=== PATIENT | male | born 1970 | race Caucasian/White ===

== ENCOUNTER 2016-09-22 17:20 | Emergency (ER) | payer OTHER ==
[~2016-09-22] VITALS: Ht 175.3 cm; Wt 72.7 kg
[~2016-09-22 17:20] MED LIST: HYDR1TAB90 PO; PER5A PO; SENN1TAB3 PO; VIS25 PO
[2016-09-22 17:30] VITALS: BP 153/92; PULSE 69; RESP 16; O2SAT 100
--- NOTE | 2016-09-22 18:22 | DRSVH ---
PROCEDURE: X-RAY FINGERS, TWO VIEWS LEFT INDICATIONS: 46 year-old male with left hand crush injury. TECHNIQUE: AP hand, 2 views of the left fourth finger(s) acquired. COMPARISON: None. FINDINGS: Bones: There is a comminuted vertical fracture involving the ulnar aspect of the fourth distal phalan geal tuft. Other bones appear intact. No suspicious bony lesions. Soft tissues: No suspicious soft tissue calcifications. IMPRESSION: Comminuted vertical fracture involves the fourth distal phalangeal tuft. Dictated by: Kaden Gonzalez M.D. on 09/22/2016 at 18:18 Approved by: Kaden Gonzalez M.D. on 09/22/2016 at 18:20
--- NOTE | 2016-09-22 18:25 | ED.REPORT ---
HPI-Extremity Problem Upper Date of Service Sep 22, 2016 ED Provider: Doc,Ed MD History of Present Illness: left 4th finger caught between a bundle of lumber and a steel plate. Happened at work around 430 today. unknown tdap. right hand dominant. Happened at work Works at [employer]. pain Nursing Notes Stated Complaint: LACERATION TO LEFT RING FINGER Chief Complaint: Extremity Trauma Allergies: Coded Allergies: pseudoephedrine (Verified Allergy, Severe, RASH, 09/22/16) Scheduled Hydrocodone Bit/Acetaminophen (Anexsia 5/325 Mg Tablet) 1 Tab Tablet 1-2 TAB PO Q 4-6HRS PRN FOR PAIN RELIEF Oxycodone/APAP-Expunged Drug, Do Not Renew! (Roxicet 5/325-Expunged Drug, Do Not Renew!) 1 Tab Tablet 1-2 TAB PO Q 4-6HRS PRN FOR POST OP PAIN Senna 8.6mg/Docusate-Expunged Drug, Do Not Re (Senokot S-Expunged Drug, Do Not Renew!) Tablet 1 TAB PO DAILY PRN FOR CONSTIPATION hydrOXYzine Harriet-Expunged Drug, Do Not Renew! (Vistaril-Expunged Drug, Do Not Renew!) 25 Mg Capsule 25 MG PO Q 6HRS PRN FOR NAUSEA AND ITCHING General Time Seen by MD: 18:24 Chief Complaint Finger injury left 4 Hx Obtained From: Patient Past Medical History Past Medical History Reports: Asthma Past Surgical History left knee acl and mcl, thyroid ductal cyst. Smoking History Current Every Day Smoker (1/2) Social History Alcohol Use: 1-3 per day Drug Use: Denies drug use Other Social History: Poor social support ( 1/2 pack a day for 5 years) Occupation lives with girlfriend work at [employer] 09/22/2016 Ambulatory Status Independent Review of Systems Basic Review of Systems Eyes: Vision NL, No discharge GI: No abdominal pain, No anorexia, No nausea, No vomiting Psychiatric: Normal thought content Physical Exam Initial Vital Signs Vital Signs (First) Date Time Temp Pulse Resp B/P Pulse Ox O2 Delivery O2 Flow Rate FiO2 09/22/16 17:30 37.0 69 16 153/92 100 Room Air Initial VS: Reviewed, Vital signs normal General/Constitutional: Well-developed, Well-nourished Head / Eyes: Atraumatic, Normocephalic, PERRL ENT: Mucous membranes moist, Conjunctiva normal, No scleral icterus Neck: Supple, Non-tender, Full range of motion Respiratory: Breath sounds normal, Clear to auscultation, No respiratory distress Cardiovascular: Regular rate & rhythm, Heart sounds normal, Intact distal pulses Abdomen / GI: Soft, Non-tender, No guarding, No rebound, No distention Back: No CVA tenderness Lymphatic: No lymphadenopathy Lower Extremities: Vascular intact, Neuro intact, No swelling, No tenderness Skin: Warm, Dry, No cyanosis Neurologic: Alert, Oriented, Nonfocal Psychiatric: Mood/affect normal, Behavior normal, Normal thought content General/Constitutional: Awake, Alert, No acute distress Neck: Atraumatic, Supple, No meningismus, Full range of motion Respiratory / Chest: Atraumatic, Breath sounds NL, Breath sounds = bilat, No respiratory distress Cardiovascular: Heart rate NL, Regular rhythm, Heart sounds NL Upper Extremity / MS: Atraumatic, Inspection NL, Full range of motion left 4th finger has 2 laceration on pad. no active bleeding, Interpretation & Diagnostics X-Ray Interpretation Xray Interpretation: PROCEDURE: X-RAY FINGERS, TWO VIEWS LEFT INDICATIONS: 46 year-old male with left hand crush injury. TECHNIQUE: AP hand, 2 views of the left fourth finger(s) acquired. COMPARISON: None. FINDINGS: Bones: There is a comminuted vertical fracture involving the ulnar aspect of the fourth distal phalangeal tuft. Other bones appear intact. No suspicious bony lesions. Soft tissues: No suspicious soft tissue calcifications. IMPRESSION: Comminuted vertical fracture involves the fourth distal phalangeal tuft. Dictated by: Kaden Gonzalez M.D. on 09/22/2016 at 18:18 Approved by: Kaden Gonzalez M.D. on 09/22/2016 at 18:20 Procedures Laceration Management Time: 19:00 Procedure Performed by: Allied health pract Consent / Setup / Site Prep: Informed consent provided, Consent from patient Location of Wound: left 4th finger tip Wound Length: 3 cm Local Anesthesia: Lidocaine 1%, 4cc, 27g needle Digital Block: Yes Digit Involved: Ring finger left Wound Preparation: Normal saline Debridement: None Irrigation: 250 cc Repair Skin: ___ O (5), Nylon # Sutures - Skin: 6 Closure Layers: 1 Suture Technique: Simple Post-Procedure / Complications: Antibiotic oint applied, Dressing applied, No complications, Condition improved, Tolerated procedure well, Patient stable Re-Eval/Medical Decision Med Decision/Clinical Course 46 year old male presents for evualation of finger injury which happened at work. X-ray indicates open fracture. Nail intact. Consult with benitez Guillen, 1 gm and follow up with him in office. No sign of compartment syndrome Discharge & Departure Impression: Primary Impression: Open fracture Additional Impressions: Crush injury Open fracture of distal phalangeal tuft Disposition: Home Patient Instructions: Finger Fracture (ED) Additional Instructions: X-ray shows a vertical fracture at the tip of the 4th finger. The lacerations have been repaired. You have received a dose of antibiotics in the ER. Continue with keflex 500 mg 3 times a day for 7 days. You were updated on your tdap today. You are being provided hydrocodone 1 up to 2 times a day as needed for severe unrelenting pain. You can not take this medication and work. Take ibuprofen 800 mg up to 3 times a day to reduce swelling and pain. No work involving the left hand for [address] Jackson and arrange follow up this week. Keep the splint on till seen by ortho. You can change the dressing in 1 to 2 days. Elevation of the hand and the finger will be most helpful at reducing pain and swelling. Referrals: Donal Jackson DO EDSupervising Provider for APC: Iván Starr MD copies to: Donal aJckson Sue ARNP Sep 22, 2016 18:25
[2016-09-22] MEDS ORDERED: Lidocaine 1% 50 mL Inj NERVEBLOCK ONE (18:40)
[2016-09-22] MEDS ORDERED: CeFAZolin 1,000 mg Inj IM ONE (18:55)
[2016-09-22] MEDS ORDERED: TdaP Vaccine 0.5 mL Inj IM ONE (18:55)
[2016-09-22] MEDS ORDERED: _HYDROcodone/APAP 5-325 mg Tablet PO PRN (19:35)
[2016-09-22 20:05] VITALS: BP 133/90; PULSE 76; RESP 16; O2SAT 100
== END 2016-09-22 20:10 | disposition home or self-care (01) ==
LOC: SED 17:20
DX: S62.631B Displaced fracture of distal phalanx of left index finger, initial encounter for open fracture (principal); S67.191A Crushing injury of left index finger, initial encounter; W23.0XXA Caught, crushed, jammed, or pinched between moving objects, initial encounter; Y93.89 Activity, other specified; Y92.69 Other specified industrial and construction area as the place of occurrence of the external cause; Y99.0 Civilian activity done for income or pay; F17.200 Nicotine dependence, unspecified, uncomplicated; Z88.8 Allergy status to other drugs, medicaments and biological substances; Z23 Encounter for immunization
CPT/HCPCS: 73140; 90471; 90715; 96372; 99284; J0690